=== PATIENT | female | born 1955 | race African-American/Black ===

== ENCOUNTER 2017-11-20 13:13 | Emergency (ER) | payer OTHER ==
[2017-11-20 13:19] VITALS: BP 130/87; PULSE 92; TEMP 98; BMI 30.1
--- NOTE | 2017-11-20 13:55 | PDOC ---
History of Present Illness - General Chief Complaint: Injury Stated Complaint: FALL (WORK INJURY) Time Seen by Provider: 11/20/17 13:41 History Source: Patient Exam Limitations: Clinical Condition - History of Present Illness Initial Comments: 11/20/17 13:49 Patient with history of hypertension and hyperlipidemia presenting with right hip and back pain status post slipping and fell. Patient reportedly there was a wet coffee spilled at work and she slipped. Patient denies hitting her head. Patient denies weakness with ambulation. Patient denies radiation of pain to any other part of the body Timing/Duration: 1-3 hours Severity: moderate Modifying Factors: improves with: rest. worse with: movement Associated Symptoms: reports: denies symptoms Past History - Past Medical History Allergies/Adverse Reactions: Allergies Allergy/AdvReac Type Severity Reaction Status Date / Time No Known Allergies Allergy Verified 11/20/17 13:18 Home Medications: Ambulatory Orders Simvastatin [Zocor -] 20 mg PO HS 12/16/12 Triamterene/Hydrochlorothiazid [Triamterene-Hctz 37.5-25 mg Cp] 1 each PO DAILY 12/16/12 Methocarbamol [Robaxin -] 500 mg PO BID PRN #14 tablet 11/20/17 Naproxen 500 mg PO BID PRN #20 tablet. 11/20/17 CVA: No COPD: No CHF: No Diabetes: No HTN: Yes Hypercholesterolemia: Yes - Suicide/Smoking/Psychosocial Hx Smoking Status: Yes Smoking History: Current every day smoker Number of Cigarettes Smoked Daily: 4 Information on smoking cessation initiated: Yes 'Breaking Loose' booklet given: 11/20/17 Review of Systems - Review of Systems Able to Perform ROS?: Yes Comments:: 11/20/17 13:52 CONSTITUTIONAL: Absent: fever, chills, diaphoresis, generalized weakness, malaise, loss of appetite HEENT: Absent: rhinorrhea, nasal congestion, throat pain, throat swelling, difficulty swallowing, mouth swelling, ear pain, eye pain, visual Changes CARDIOVASCULAR: Absent: chest pain, syncope, palpitations, irregular heart rate, peripheral edema RESPIRATORY: Absent: cough, shortness of breath, dyspnea with exertion, orthopnea, wheezing, stridor, hemoptysis GASTROINTESTINAL: Absent: abdominal pain, abdominal distension, nausea, vomiting, diarrhea, constipation, melena, hematochezia GENITOURINARY: Absent: dysuria, frequency, urgency, hesitancy, hematuria, flank pain, genital pain MUSCULOSKELETAL: right lower back pains and pain to back of right thigh radiating down to knee Absent: , arthralgia, joint swelling SKIN: Absent: rash, itching, pallor HEMATOLOGIC/IMMUNOLOGIC: Absent: easy bleeding, easy bruising, lymphadenopathy, frequent infections ENDOCRINE: Absent: unexplained weight gain, unexplained weight loss, heat intolerance, cold intolerance NEUROLOGIC: Absent: headache, focal weakness or paresthesias, dizziness, unsteady gait, seizure, mental status changes, bladder or bowel incontinence PSYCHIATRIC: Absent: anxiety, depression, suicidal or homicidal ideation, hallucinations. Is the patient limited Malian proficient: No *Physical Exam - Vital Signs Last Vital Signs Temp Pulse Resp BP Pulse Ox 98 F 92 H 18 130/87 100 11/20/17 13:16 11/20/17 13:16 11/20/17 13:16 11/20/17 13:16 11/20/17 13:16 - Physical Exam Comments: 11/20/17 13:53 GENERAL: Well developed, well nourished. Awake and alert. No acute distress. HEENT: Normocephalic, atraumatic. PERRLA, EOMI. No conjunctival pallor. Sclera are non- icteric. Moist mucous membranes. Oropharynx is clear. NECK: Supple. Full ROM. No JVD. Carotid pulses 2+ and symmetric, without bruits. No thyromegaly. No lymphadenopathy. CARDIOVASCULAR: Regular rate and rhythm. No murmurs, rubs, or gallops. Distal pulses are 2+ and symmetric. PULMONARY: No evidence of respiratory distress. Lungs clear to auscultation bilaterally. No wheezing, rales or rhonchi. ABDOMINAL: Soft. Non-tender. Non-distended. No rebound or guarding. No organomegaly. Normoactive bowel sounds. MUSCULOSKELETAL mild tenderness to right paravertebral region of L5 disc S1. Pain worse to right lower back with elevation of leg to the 80 Normal range of motion at all joints. No bony deformities . No midline tenderness. EXTREMITIES: No cyanosis. No clubbing. No edema. No calf tenderness. SKIN: Warm and dry. Normal capillary refill. No rashes. No jaundice. NEUROLOGICAL: Alert, awake, appropriate. Cranial nerves 2-12 intact. No deficits to light touch and temperature in face, upper extremities and lower extremities. No motor deficits in the in face, upper extremities and lower extremities. Normoreflexic in the upper and lower extremities. Normal speech. Toes are down- going bilaterally. Gait is normal without ataxia. PSYCHIATRIC: Cooperative. Good eye contact. Appropriate mood and affect. General Appearance: Yes: Nourished, Appropriately Dressed. No: Apparent Distress ED Treatment Course - RADIOLOGY Radiology Studies Ordered: Category Date Time Status FEMUR-RIGHT [RAD] Stat Radiology 11/20/17 13:48 Ordered HIP & PELVIS-RIGHT [RAD] Stat Radiology 11/20/17 13:48 Ordered Medical Decision Making - Medical Decision Making 11/20/17 13:55 Patient with history of hypertension presenting with lower back pain right thigh pain status post slip and fall. No evidence of acute fracture on clinical exam. X-ray of lower back pain and femur ordered. Treat based on x-ray report 11/20/17 14:39 no acute fracture or dislocation on x-ray of the back or femur.stable for home discharge NSAIDs and muscle rel *DC/Admit/Observation/Transfer Diagnosis at time of Disposition: Back contusion Qualifiers: Encounter type: initial encounter Laterality: right Qualified Code(s): S20.221A - Contusion of right back wall of thorax, initial encounter Thigh pain Qualifiers: Laterality: right Qualified Code(s): M79.651 - Pain in right thigh - Discharge Dispostion Disposition: HOME Condition at time of disposition: Good Decision to Admit order: No - Prescriptions Prescriptions: Methocarbamol [Robaxin -] 500 mg PO BID PRN #14 tablet PRN Reason: Back Pain Naproxen 500 mg PO BID PRN #20 tablet.dr MCGRATH Reason: Back Pain - Referrals Referrals: Junaid Schroeder MD [Staff Physician] - - Patient Instructions Additional Instructions: Take medication as prescribed. Rest lower back. Apply heat twice a day as needed to lower back. Follow-up with orthopedics if symptoms persist - Post Discharge Activity Forms/Work/School Notes: Back to Work
== END 2017-11-20 14:57 | disposition home or self-care (01) ==
LOC: JERFT 13:13
DX: S20.221A Contusion of right back wall of thorax, initial encounter (principal); M25.551 Pain in right hip; W01.0XXA Fall on same level from slipping, tripping and stumbling without subsequent striking against object, initial encounter; Y93.89 Activity, other specified; Y92.69 Other specified industrial and construction area as the place of occurrence of the external cause; Y99.0 Civilian activity done for income or pay
CPT/HCPCS: 73523-TC-FY; 73552-TC-RT-FY; 99281-25